=== PATIENT | female | born 1955 | race Caucasian/White ===

== ENCOUNTER → 2022-09-24 | Outpatient (CLI) | payer BC ==
[2022-09-24 13:56] VITALS: BP 144/86; PULSE 99; RESP 16; TEMP 98.1; BMI 34.0
--- NOTE | 2022-09-24 16:51 | P.BASOAP ---
Subjective Progress Note Date: 09/24/22 Principal diagnosis: Morbid obesity 67-year-old female underwent lap band placement in around 2004. She says that around 2008 her port was replaced after it broke. She lives in the [facility]. She has been following with a bariatric surgeon there. He does not perform LAP-BAND. The patient recently noticed decreased restriction. Apparently the fluid that they added to the patient's band when rechecked a few months later was gone. Patient has had gradual weight gain. Prior to her LAP- BAND the patient weight 238. Her lowest weight was 160. Currently 198. Objective - Vital Signs Vital signs: Vital Signs Temp 98.1 F 09/24/22 13:53 Pulse 99 09/24/22 13:53 Resp 16 09/24/22 13:53 BP 144/86 09/24/22 13:53 Pulse Ox FiO2 Intake & Output 09/23/22 09/24/22 09/24/22 18:59 06:59 18:59 Weight 89.811 kg - Exam Abdomen: Soft, nontender, nondistended Assessment/Plan (1) Morbid obesity Narrative/Plan: 67-year-old female with history of lap band. Suspect token port. Will access the patient's port. The patient's lap band port was palpated. The site was aseptically prepped. The Clark needle was advanced into the port. 2 mL was advanced into the port. We were unable to aspirate any of the fluid. The system is leaking. The question remains where. It is likely at the junction between the port and the lap band tubing. Recommend fluoroscopy failed to confirm location of leakage. Patient would like to keep the band. As long as this is a poor related problem we'll plan laparoscopic port removal and replacement. Plan: Date: 09/24/22 Initial Weight: 107.955 kg Initial BMI: 40.8 Current Weight: 89.811 kg Current BMI: 34.0 Type of Surgery: Vertical Sleeve Gastrectomy Total Volume in Band: Previous Volume: Volume Removed: Volume Added: Band Size:
== END ==
LOC: BARWHC3 13:39
PROVIDERS: ATTEND Surgery
DX: E66.01 Morbid (severe) obesity due to excess calories (principal); Z68.41 Body mass index [BMI] 40.0-44.9, adult
CPT/HCPCS: 99211

== ENCOUNTER → 2022-10-07 | Outpatient (CLI) | payer BC ==
--- NOTE | 2022-10-07 13:27 | P.PCN ---
Date of Procedure: 10/07/22 Procedure(s) Performed: Patient here today for fluoroscopic fill. No additional changes to the recent office visit. The patient's lap band port was palpated. The site was aseptically prepped. The Clark needle was advanced into the port. A total of 15 mL of contrast was instilled into the port under fluoroscopic guidance. I was able to quickly identify some contrast leakage from what appeared to represent the junction between the lap band tubing and the port tubing. Unfortunately was also able to visualize what appeared to possibly represent contrast extravasation close to the buckle of the lap band. Patient tolerated the procedure well. Pressure was held and a sterile dressing was applied. Patient is going to [place] tomorrow. I will discuss surgical options with her further by phone. Likely will proceed with laparoscopic lap band port replacement, possible lap band replacement, possible lap band removal.
--- NOTE | 2022-10-07 22:50 | FL ---
EXAMINATION TYPE: FL UGI limited DATE OF EXAM: 10/07/2022 COMPARISON: NONE HISTORY: Pt here for lap band port adjustment TECHNIQUE: Fluoroscopy. FINDINGS: Pt given 15ml Isovue 300 33sec fluoro time...435.11 DAP Original lap band surgery 01/2010 Performed by IMPRESSION: As Above.
== END | disposition home or self-care (01) ==
LOC: RADUSWWP 12:33
PROVIDERS: ATTEND Surgery
DX: Z46.51 Encounter for fitting and adjustment of gastric lap band (principal); Z98.84 Bariatric surgery status
CPT/HCPCS: 74240

== ENCOUNTER 2022-12-16 08:29 | Inpatient (IN) | payer BC ==
[~2022-12-16 08:29] MED LIST: DEXAMETHASONE SOD PHOSPHATE 4 MG/ML 1 ML VIAL IV ONE; HYDROmorphone 0.5 MG/0.5 ML SYRINGE IVP PRN; LACTATED RINGERS 1,000 ML IV SCH; LIDOCAINE 1% (10MG/ML) FOR IV START INTRADERMA PRN; ONDANSETRON 4 MG/2 ML VIAL IVP ONE; droPERidol 5 MG/2 ML VIAL IVP ONE
[2022-12-16] MEDS ORDERED: HEPARIN SODIUM,PORCINE/PF 5,000 UNIT/0.5 ML SYRINGE SQ ONE (09:18)
--- NOTE | 2022-12-16 09:18 | P.GSHP ---
History of Present Illness H&P Date: 12/16/22 Chief Complaint: Leaking lap band system 67-year-old female here for repair of leaking lap band. Patient had her lap band placed 2004. She did have her port replaced on one occasion. Recently started noticing decreased restriction. Fluoroscopic evaluation of the port rev ealed a leak from the tubing close to the port. There may be a secondary site of leakage closer to the band site itself. Patient is interested in keeping her band. She has done well with her weight loss over the years. Past Medical History Past Medical History: Coronary Artery Disease (CAD), GERD/Reflux, Hypertension, Osteoarthritis (OA), Pulmonary Embolus (PE) Additional Past Medical History / Comment(s): hx. of sarcoidosis, seasonal allergies, PE 20 yrs. ago History of Any Multi-Drug Resistant Organisms: None Reported Past Surgical History: Bariatric Surgery, Hysterectomy, Joint Replacement Additional Past Surgical History / Comment(s): lap band 2006, lou filter, CTS right wrist, torn tendon repaired left ankle,. bilateral hip replacemement. bilateral knee replacement Past Anesthesia/Blood Transfusion Reactions: No Reported Reaction Smoking Status: Never smoker - Past Family History Mother Family Medical History: No Reported History Medications and Allergies Home Medications Medication Instructions Recorded Confirmed Type Amitriptyline HCl [Elavil] 10 mg PO HS PRN 09/26/22 12/11/22 History Aspirin 81 mg PO Q2D 09/26/22 12/11/22 History Aspirin 325 mg PO Q2D 09/26/22 12/11/22 History Famotidine 20 mg PO BID 09/26/22 12/11/22 History Losartan [Cozaar] 50 mg PO DAILY 09/26/22 12/11/22 History Fluticasone/Umeclidin/Vilanter 1 puff INHALATION DAILY 12/11/22 12/11/22 History [Trelegy Ellipta 200-62.5-25] Multivit/Folic Acid/Vit K1 1 each PO DAILY 12/11/22 12/11/22 History [One-A-Day Women's 50 Plus Tab] Allergies Allergy/AdvReac Type Severity Reaction Status Date / Time cefdinir [From Omnicef] Allergy Rash/Hives Verified 12/11/22 11:23 Penicillins Allergy Anaphylaxis Verified 12/11/22 11:23 Sulfa (Sulfonamide Allergy Rash/Hives Verified 12/11/22 11:23 Antibiotics) Surgical - Exam Physical exam: General: Well-developed, well-nourished HEENT: Normocephalic, sclerae nonicteric Abdomen: Nontender, nondistended Extremities: No edema Neuro: Alert and oriented Assessment and Plan (1) Morbid obesity Narrative/Plan: A 67-year-old female with malfunctioning LAP-BAND. We'll proceed with laparoscopic replacement LAP-BAND port, possible lap band system replacement, possible band removal. The risks of bleeding, infection, stenosis, stricture, leak, abscess, fistula formation, peritonitis, poor weight loss, reflux, vomiting, conversion to an open procedure, ME, PE, DVT, and were discussed. The patient understands and wishes to proceed. Current Visit: No Status: Acute Code(s): E66.01 - MORBID (SEVERE) OBESITY DUE TO EXCESS CALORIES SNOMED Code(s): 995810331
[2022-12-16 09:30] VITALS: TEMP 97.3
[2022-12-16] MEDS ORDERED: PROPOFOL 10 MG/ML 20 ML VIAL IV ONE (09:52)
[2022-12-16] MEDS ORDERED: HYDROmorphone (PF) 1 MG/ML ONE (09:52)
[2022-12-16] MEDS ORDERED: GLYCOPYRROLATE 0.2 MG/ML 2 ML VIAL ONE (09:52)
[2022-12-16] MEDS ORDERED: NEOSTIGMINE 1 MG/ML 10 ML VIAL ONE (09:52)
[2022-12-16] MEDS ORDERED: PHENYLEPHRINE-0.9% NACL SYG 1,000 MCG/10 ML SYRINGE ONE (09:52)
[2022-12-16] MEDS ORDERED: SUCCINYLCHOLINE CHLORIDE 200 MG/10 ML VIAL IV ONE (09:52)
[2022-12-16] MEDS ORDERED: ROCURONIUM 10 MG/ML (5 ML VIAL) IV ONE (09:52)
[2022-12-16] MEDS ORDERED: fentaNYL (PF) 50 MCG/ML 2 ML AMP ONE (09:52)
[2022-12-16] MEDS ORDERED: LIDOCAINE 2% INJ 20 MG/ML (2 ML VIAL) ONE (09:52)
[2022-12-16] MEDS ORDERED: MIDAZOLAM 2 MG/2 ML VIAL ONE (09:52)
[2022-12-16] MEDS ORDERED: BUPIVACAINE (PF) 0.25% 30 ML VIAL SQ ONE ×2 (10:13→10:51)
[2022-12-16] MEDS ORDERED: LACTATED RINGERS 1,000 ML IV ONE (10:54)
[2022-12-16] MEDS ORDERED: NALOXONE 0.4 MG/ML 1 ML VIAL IV PRN (11:05)
--- NOTE | 2022-12-16 11:30 | P.OP ---
Date of Procedure: 12/16/22 Procedure(s) Performed: PREOPERATIVE DIAGNOSIS: Malfunctioning LAP-BAND POSTOPERATIVE DIAGNOSIS: Leaking lap band tubing at port site PROCEDURE: Laparoscopic removal and replacement LAP-BAND port SURGEON: Lakshmi EBL: Jordyn Batista ANESTHESIA: Gen. COMPLICATIONS: None OPERATIVE PROCEDURE: Patient placed in lithotomy after general anesthesia achieved. Abdomen prepped and draped sterilely. Previous port incision re- incised. Port easily excised. There was an obvious hole in the tubing proximal to the junction with the lap band tubing. The tubing was cut on the lap band side. A 5 mm optical trocar was advanced and the peritoneal cavity without difficulty. I then took a 10 mL syringe and irrigated the lap band system. We were inspecting the tubing and the band itself and there was no evidence of any leak anywhere also the system. A new transverse incision was made in the right upper quadrant. Dissection through the subcutaneous fat took place using electrocautery. The fascia was freed circumferentially. 3 separate 0 Nurolon sutures were placed on the fascia. A 5 mm trocar was advanced into the perineal cavity directed medially. The tubing was grabbed and pulled through this. A new lap band port was connected to the tubing. The port was secured to the fascia using the previously placed 0 Nurolon sutures. The port was flushed with saline again. Once again there was no evidence of leak. The band was left empty. The subcutaneous tissues at both sites was closed using sutures. The sk in was closed using running 4-0 Monocryl suture. Skin glue and sterile dressings were applied. DISPOSITION: Stable to recovery room
[2022-12-16] MEDS ORDERED: IBUPROFEN 800 MG TAB PO STA (12:00)
[2022-12-16 12:11] VITALS: BP 146/80; PULSE 68; RESP 14
[2022-12-16] MEDS ORDERED: IBUPROFEN 200 MG TAB PO ONE (12:14)
== END 2022-12-16 12:39 | disposition home or self-care (01) | DRG 328 ==
LOC: 2ORMAIN 08:29
PROVIDERS: ADMIT Surgery; ATTEND Surgery
PROC: 0DW64CZ Revision of Extraluminal Device in Stomach, Percutaneous Endoscopic Approach (ICD-10-PCS; principal; 2022-12-16 10:30)
DX: K95.09 Other complications of gastric band procedure (principal); Z68.34 Body mass index [BMI] 34.0-34.9, adult; D86.9 Sarcoidosis, unspecified; E66.01 Morbid (severe) obesity due to excess calories; I10 Essential (primary) hypertension; I25.10 Atherosclerotic heart disease of native coronary artery without angina pectoris; K21.9 Gastro-esophageal reflux disease without esophagitis; M19.90 Unspecified osteoarthritis, unspecified site; J30.2 Other seasonal allergic rhinitis; Z79.82 Long term (current) use of aspirin; Z79.51 Long term (current) use of inhaled steroids; Z79.899 Other long term (current) drug therapy; Z86.711 Personal history of pulmonary embolism; Z96.643 Presence of artificial hip joint, bilateral; Z96.653 Presence of artificial knee joint, bilateral; Z88.2 Allergy status to sulfonamides; Z88.0 Allergy status to penicillin; Z88.1 Allergy status to other antibiotic agents; Z95.828 Presence of other vascular implants and grafts

== ENCOUNTER → 2023-01-07 | Outpatient (CLI) | payer BC ==
[2023-01-07 13:38] VITALS: BP 129/77; PULSE 78; RESP 16; TEMP 97.9; BMI 34.0
--- NOTE | 2023-01-07 16:55 | P.BASOAP ---
Subjective Progress Note Date: 01/07/23 Principal diagnosis: Morbid obesity Patient returns for recheck. Had poor replaced 12/16. Patient feels no restriction. She would like fluid added. Objective - Vital Signs Vital signs: Vital Signs Temp 97.9 F 01/07/23 13:36 Pulse 78 01/07/23 13:36 Resp 16 01/07/23 13:36 BP 129/77 01/07/23 13:36 Pulse Ox FiO2 Intake & Output 01/06/23 01/07/23 01/07/23 18:59 06:59 18:59 Weight 89.811 kg - Exam Abdomen: Soft, nondistended, incisions clean and dry Assessment/Plan (1) Morbid obesity Narrative/Plan: Patient doing well after for replacement. We think she had about 3 mL in her band in the past. We'll add 1.5 mL today. Follow-up 4-6 weeks. Plan: Date: 01/07/23 Initial Weight: 107.955 kg Initial BMI: 40.8 Current Weight: 89.811 kg Current BMI: 34.0 Type of Surgery: Adjustable Gastric Banding Total Volume in Band: 1.5 Previous Volume: Volume Removed: Volume Added: 1.5 Band Size:
== END ==
LOC: BARWHC3 13:04
PROVIDERS: ATTEND Surgery
DX: E66.01 Morbid (severe) obesity due to excess calories (principal); Z71.3 Dietary counseling and surveillance; Z68.34 Body mass index [BMI] 34.0-34.9, adult; Z88.0 Allergy status to penicillin; Z88.8 Allergy status to other drugs, medicaments and biological substances; Z88.2 Allergy status to sulfonamides
CPT/HCPCS: 99212

== ENCOUNTER → 2023-02-18 | Outpatient (CLI) | payer BC ==
[2023-02-18 13:33] VITALS: BP 131/84; PULSE 91; RESP 16; TEMP 97.6; BMI 33.1
--- NOTE | 2023-02-18 13:38 | P.BASOAP ---
Subjective Progress Note Date: 02/18/23 Principal diagnosis: Morbid obesity Patient doing well today. Last seen 01/07. She had 1.5 mL added to her band. Patient says she feels some restriction and has lost 5 pounds. She would like a bit more adequate. Objective - Vital Signs Vital signs: Vital Signs Temp 97.6 F 02/18/23 13:26 Pulse 91 02/18/23 13:26 Resp 16 02/18/23 13:26 BP 131/84 02/18/23 13:26 Pulse Ox FiO2 Intake & Output 02/17/23 02/18/23 02/18/23 18:59 06:59 18:59 Weight 87.543 kg - Exam Abdomen: Soft, nontender, nondistended Assessment/Plan (1) Morbid obesity Narrative/Plan: Patient doing well after recent port replacement. Will add additional 0.5 mL of fluid. The patient's lap band port was palpated. The site was aseptically prepped. The Clark needle was advanced into the port. A total of 0.5 ml of fluid was added for a total of 2.0 mL. Pressure was held and a sterile dressing was applied. Plan: Date: 02/18/23 Initial Weight: 107.955 kg Initial BMI: 40.8 Current Weight: 87.543 kg Current BMI: 33.1 Type of Surgery: Adjustable Gastric Banding Total Volume in Band: 1.5 Previous Volume: Volume Removed: Volume Added: Band Size:
== END ==
LOC: BARWHC3 13:18
PROVIDERS: ATTEND Surgery
DX: E66.01 Morbid (severe) obesity due to excess calories (principal); Z98.84 Bariatric surgery status; Z68.33 Body mass index [BMI] 33.0-33.9, adult; Z46.51 Encounter for fitting and adjustment of gastric lap band; Z88.0 Allergy status to penicillin; Z88.2 Allergy status to sulfonamides; Z88.8 Allergy status to other drugs, medicaments and biological substances
CPT/HCPCS: 99212

== ENCOUNTER → 2024-09-28 | Outpatient (CLI) | payer BC ==
[2024-09-28 12:08] VITALS: BP 141/90; PULSE 100; RESP 16; TEMP 97.5; BMI 32.1
--- NOTE | 2024-09-28 12:34 | P.BASOAP ---
Subjective Progress Note Date: 09/28/24 Principal diagnosis: Morbid obesity 69-year-old female here for Lap-Band evaluation. She was last seen 1.5 years ago. Patient had her band replaced 2 years ago. She had 2 fills after that. First fill up to 1.5 cc and the second fill to 2 cc. Patient says she got down as low as 179. Today she is at 187. When I saw her last she was at 193. She is interested in a fill. Says she does have some dysphagia to certain meats and pastas. No GERD, no vomiting. No night cough. Objective - Vital Signs Vital signs: Vital Signs Temp 97.5 F L 09/28/24 12:05 Pulse 100 09/28/24 12:05 Resp 16 09/28/24 12:05 BP 141/90 09/28/24 12:05 Pulse Ox FiO2 Intake & Output 09/27/24 09/28/24 09/28/24 18:59 06:59 18:59 Weight 84.822 kg - Exam Abdomen: Soft, nontender, nondistended Assessment/Plan (1) Morbid obesity Narrative/Plan: Patient interested in Lap-Band adjustment. Will add 0.3 for a total of 2.3 cc. The patient's lap band port was palpated. The site was aseptically prepped. The Clark needle was advanced into the port. A total of 0.3 ml of fluid was added. Pressure was held and a sterile dressing was applied. Plan: Date: 09/28/24 Initial Weight: 107.955 kg Initial BMI: 40.8 Current Weight: 84.822 kg Current BMI: 32.1 Type of Surgery: Adjustable Gastric Banding Total Volume in Band: 2.0 Previous Volume: Volume Removed: Volume Added: Band Size:
== END ==
LOC: BARWHC3 11:55
PROVIDERS: ATTEND Surgery
DX: E66.01 Morbid (severe) obesity due to excess calories (principal); Z88.0 Allergy status to penicillin; Z88.2 Allergy status to sulfonamides; Z88.1 Allergy status to other antibiotic agents; Z68.32 Body mass index [BMI] 32.0-32.9, adult
CPT/HCPCS: 43999